=== PATIENT | male | born 1985 | race Caucasian/White ===

== ENCOUNTER 2017-01-05 19:04 | Emergency (ER) | payer OTHER ==
[~2017-01-05] VITALS: Ht 172.7 cm; Wt 144.1 kg
[~2017-01-05 19:04] MED LIST: DRV100 PO
[2017-01-05 19:07] VITALS: TEMP 36.4; Ht 172.7 cm; Wt 144.1 kg
[2017-01-05 19:16] VITALS: O2SAT 96
--- NOTE | 2017-01-05 19:30 | EMERGENCY ROOM VISIT NOTE ---
History Report prepared by Scribjoe: Steffany Castellanos Under the Supervision of: Dr. Nuria Hernandez D.O. First contact with patient: 19:11 Chief Complaint: CHEST PAIN Stated Complaint: CHEST PAIN, LEFT ARM WEIRD FEELING History of Present Illness The patient is a 31 year old male who presents to the Emergency Room with complaints of persistent chest pain that started at 1000 this morning. He rates his discomfort as a 3/10 in severity and describes it as feeling like "pressure ". 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 Movement actually eases his pain. He also complains of numbness in his left arm and some intermittent abdominal pain. He told his Mother, who is a nurse, about his symptoms and states she checked his blood pressure and found it to be elevated, so she advised he come to the ED. The patient notes his brother had open heart surgery at age 32 for mitral valve replacement. He also admits to a constant cough "for the past few years", stating he feels like something is stuck in his throat. He denies any recent fevers, cold symptoms, shortness of breath, diarrhea, constipation, urinary symptoms or swelling in his legs. The patient is a non-smoker. He has been eating and drinking normally in the past few days. He denies any recent changes in stress levels or activity. Source of History: patient Onset: 1000 today Position: chest Symptom Intensity: 3/10 Quality: pressure Timing: other (persistent) Associated Symptoms: + cough, + abdominal pain, + numbness (left arm), No SOB, No diarrhea, No urinary symptoms Review of Systems See HPI for pertinent positives & negatives. A total of 10 systems reviewed and were otherwise negative. Family History Heart disease Mitral valve repair Social History Smoking Status: Never Smoker Smokeless Tobacco Use: No Alcohol Use: occasionally Drug Use: none Marital Status: Housing Status: lives with family Occupation Status: employed Current/Historical Medications Scheduled Bupropion (Wellbutrin), Unknown Dose PO DAILY Allergies Coded Allergies: Amoxicillin (Unverified Allergy, Severe, ., 01/05/17) Erythromycin (Unverified Allergy, Severe, ., 01/05/17) Penicillins (Unverified Allergy, Severe, ., 01/05/17) Physical Exam Vital Signs Date Time Temp Pulse Resp B/P (MAP) Pulse Ox O2 Delivery O2 Flow Rate FiO2 01/05/17 21:14 105 16 151/101 96 01/05/17 20:23 107 16 153/108 96 Room Air 01/05/17 19:19 112 01/05/17 19:16 96 Room Air 01/05/17 19:14 96 Room Air 01/05/17 19:07 36.4 112 16 162/110 100 Room Air Physical Exam GENERAL: Patient is alert, well appearing, well nourished, no distress, non- toxic EYE EXAM: normal conjunctiva, PERRL and EOM's grossly intact OROPHARYNX: no exudate, no erythema, lips, buccal mucosa, and tongue normal and mucous membranes are moist NECK: supple, no nuchal rigidity, no adenopathy, non-tender LUNGS: Clear to auscultation. Normal chest wall mechanics HEART: no murmurs, S1 normal and S2 normal ABDOMEN: abdomen soft, non-tender, normo-active bowel sounds, no masses, no rebound or guarding. BACK: Back is symmetrical on inspection and there is no deformity, no midline tenderness, no CVA tenderness. SKIN: no rashes and no bruising UPPER EXTREMITIES: upper extremities are grossly normal. LOWER EXTREMITIES: No pitting edema. NEURO EXAM: Normal sensorium, cranial nerves II-XII [grossly] intact, normal speech, no [gross] weakness of arms, no [gross] weakness of legs. [No drift. Finger to nose intact. Gross sensation intact.] Medical Decision & Procedures ER Provider Diagnostic Interpretation: Radiology results have been interpreted by the radiologist and reviewed by me. CHEST ONE VIEW PORTABLE CLINICAL HISTORY: chest pain dyspnea COMPARISON STUDY: No previous studies for comparison. FINDINGS: The bones soft tissues and hemidiaphragms are normal. The cardiomediastinal silhouette is normal. The lungs are clear. The pulmonary vasculature is normal. IMPRESSION: Negative chest. The above report was generated using voice recognition software. It may contain grammatical, syntax or spelling errors. Electronically signed by: Leandro Ovalle M.D. 01/05/2017 8:04 PM Laboratory Results 01/05/17 19:39 Red Blood Count 5.37, Mean Corpuscular Volume 84.5, Mean Corpuscular Hemoglobin 28.3, Mean Corpuscular Hemoglobin Concent 33.5, Mean Platelet Volume 9.4, Neutrophils (%) (Auto) 68.2, Lymphocytes (%) (Auto) 21.3, Monocytes (%) (Auto) 7.8, Eosinophils (%) (Auto) 1.9, Basophils (%) (Auto) 0.6, Neutrophils # (Auto) 7.36, Lymphocytes # (Auto) 2.29, Monocytes # (Auto) 0.84, Eosinophils # (Auto) 0.20, Basophils # (Auto) 0.06 01/05/17 19:39 Test 01/05/17 19:39 White Blood Count 10.77 K/uL (4.8-10.8) Red Blood Count 5.37 M/uL (4.7-6.1) Hemoglobin 15.2 g/dL (14.0-18.0) Hematocrit 45.4 % (42-52) Mean Corpuscular Volume 84.5 fL (80-100) Mean Corpuscular Hemoglobin 28.3 pg (25-34) Mean Corpuscular Hemoglobin Concent 33.5 g/dl (32-36) Platelet Count 279 K/uL (130-400) Mean Platelet Volume 9.4 fL (7.4-10.4) Neutrophils (%) (Auto) 68.2 % Lymphocytes (%) (Auto) 21.3 % Monocytes (%) (Auto) 7.8 % Eosinophils (%) (Auto) 1.9 % Basophils (%) (Auto) 0.6 % Neutrophils # (Auto) 7.36 K/uL (1.4-6.5) Lymphocytes # (Auto) 2.29 K/uL (1.2-3.4) Monocytes # (Auto) 0.84 K/uL (0.11-0.59) Eosinophils # (Auto) 0.20 K/uL (0-0.5) Basophils # (Auto) 0.06 K/uL (0-0.2) RDW Standard Deviation 38.7 fL (36.4-46.3) RDW Coefficient of Variation 12.6 % (11.5-14.5) Immature Granulocyte % (Auto) 0.2 % Immature Granulocyte # (Auto) 0.02 K/uL (0.00-0.02) Prothrombin Time 11.3 SECONDS (9.0-12.0) Prothromb Time International Ratio 1.1 (0.9-1.1) D-Dimer 380 ug/L FEU (0-500) Anion Gap 7.0 mmol/L (3-11) Est Creatinine Clear Calc Drug Dose 134.5 ml/min Estimated GFR () 102.4 Estimated GFR (Non- 88.4 BUN/Creatinine Ratio 10.8 (10-20) Calcium Level 9.1 mg/dl (8.5-10.1) Total Bilirubin 0.6 mg/dl (0.2-1) Aspartate Amino Transf (AST/SGOT) 48 U/L (15-37) Alanine Aminotransferase (ALT/SGPT) 85 U/L (12-78) Alkaline Phosphatase 65 U/L (45-117) Troponin I < 0.015 ng/ml (0-0.045) Pro-B-Type Natriuretic Peptide 10 pg/ml (0-450) Total Protein 7.4 gm/dl (6.4-8.2) Albumin 3.6 gm/dl (3.4-5.0) Globulin 3.8 gm/dl (2.5-4.0) Albumin/Globulin Ratio 0.9 (0.9-2) Laboratory results per my review. Medications Administered Medications (Trade) Dose Ordered Sig/Mary Route Start Time Stop Time Status Last Admin Dose Admin Al Hydroxide/Mg Hydroxide (Maalox Susp) 30 ml NOW STAT PO 01/05/17 20:17 01/05/17 20:18 DC 01/05/17 20:21 30 ML Ketorolac Tromethamine (Toradol Inj) 30 mg NOW STAT IV 01/05/17 20:40 01/05/17 20:42 DC 01/05/17 20:46 30 MG ECG Indication: chest pain Rate (beats per minute): 102 Rhythm: sinus tachycardia Findings: no acute ischemic change, no ectopy, other (normal axis, normal intervals) ED Course 1915: The patient was evaluated in room C9. A complete history and physical exam was performed. 2017: Maalox Susp 30 ml PO. 2034: I reevaluated the patient. He states his pain is now a 2/10 in severity and he is feeling better. I discussed his results and discharge instructions and he verbalized complete understanding and agreement. 2039: Toradol 30 mg IV. Medical Decision Prior records/ancillary studies reviewed. Triage Nursing notes reviewed. The patient's history was concerning for chest pain. Differential diagnosis: Etiologies such as cardiac ischemia, aortic dissection, pulmonary embolism, pneumonia, pneumothorax, musculoskeletal, infections, pericarditis, myocarditis , esophageal rupture, gastrointestinal, as well as others were entertained. Pt well appearing here despite complaints. Pain improved with maalox and then resolved with toradol. Discussed ddx with pt, all labs/imaging. Doubt cardiac or vascular etiology, doubt tamponade, effusion, pneumothorax, pneumonia, dysrhythmia, aaa, dissection. Pt with hypertension noted here, as well as tachycardia initially which improved. Likely from pain, anxiety regarding situation. Doubt pe, no evidence for anemia, dimer negative. HR improved with hydration and pain control. Discussed close f/u with PCP, recheck of BP, and if sx recur or persist, possible cardiology evaluation. Discussed sx to watch/ return for, he verbalized understanding and was agreeable with plan. Medication Reconcilliation Current Medication List: was personally reviewed by me Blood Pressure Screening Patient's blood pressure: Elevated blood pressure Blood pressure disposition: Referred to PCP Impression Primary Impression: Chest pain Additional Impressions: Hypertension Obesity Scribe Attestation The scribe's documentation has been prepared under my direction and personally reviewed by me in its entirety. I confirm that the note above accurately reflects all work, treatment, procedures, and medical decision making performed by me. Departure Information Dispostion Home / Self-Care Referrals Dmitry Chery M.D. (PCP) Patient Instructions My [facility] Additional Instructions Please call and follow up with your family doctor. Please avoid any strenuous activity or heavy lifting until you're seen by your doctor. If you have any recurrent episodes of pain, develop trouble breathing, fevers, cough, dizziness , vomiting, back pain, or you have any other new concerns, please return to the emergency room. Problem Qualifiers Primary Impression: Chest pain Chest pain type: unspecified Qualified Codes: R07.9 - Chest pain, unspecified Additional Impressions: Hypertension Hypertension type: essential hypertension Qualified Codes: I10 - Essential ( primary) hypertension Obesity Obesity type: due to excess calories Obesity classification: unspecified obesity classification Serious obesity comorbidity presence: without serious comorbidity Qualified Codes: E66.09 - Other obesity due to excess calories
[2017-01-05 19:50] LABS: BASO % 0.6 %; BASO ABS # 0.06 K/uL (0-0.2); COMPLETE YES; EOS % 1.9 %; HEMATOCRIT 45.4 % (42-52); IG% 0.2 %; LYMPH % 21.3 %; LYMPH ABS # 2.29 K/uL (1.2-3.4); MEAN CELL VOLUME 84.5 fL (80-100); MEAN CORPUSCULAR HEMOGLOBIN 28.3 pg (25-34); MEAN CORPUSCULAR HGB CONC 33.5 g/dl (32-36); MEAN PLATELET VOLUME 9.4 fL (7.4-10.4); MONO % 7.8 %; NEUT % 68.2 %; PLATELET COUNT 279 K/uL (130-400); RED BLOOD COUNT 5.37 M/uL (4.7-6.1); WHITE BLOOD COUNT 10.77 K/uL (4.8-10.8)
[2017-01-05 20:03] LABS: INR 1.1 (0.9-1.1); PROTHROMBIN TIME (PATIENT) 11.3 SECONDS (9.0-12.0)
[2017-01-05 20:06] LABS: ALT/SGPT 85 U/L (12-78); AST/SGOT 48 U/L (15-37); BLOOD UREA NITROGEN 12 mg/dl (7-18); BUN/CREATININE RATIO 10.8 (10-20); CALCIUM 9.1 mg/dl (8.5-10.1); CARBON DIOXIDE 27 mmol/L (21-32); CHLORIDE 104 mmol/L (98-107); GLUCOSE 84 mg/dl (70-99); POTASSIUM 3.7 mmol/L (3.5-5.1); SODIUM 138 mmol/L (136-145)
[2017-01-05] MEDS ORDERED: BUPR75TA20 PO (20:06)
--- NOTE | 2017-01-05 20:06 | DIAGNOSTIC IMAGING REPORT ---
CHEST ONE VIEW PORTABLE CLINICAL HISTORY: chest pain dyspnea COMPARISON STUDY: No previous studies for comparison. FINDINGS: The bones soft tissues and hemidiaphragms are normal. The cardiomediastinal silhouette is normal. The lungs are clear. The pulmonary vasculature is normal. IMPRESSION: Negative chest. The above report was generated using voice recognition software. It may contain grammatical, syntax or spelling errors. Electronically signed by: Leandro Ovalle M.D. 01/05/2017 8:04 PM Dictated Date/Time: 01/05/2017 8:03 PM
[2017-01-05 20:11] LABS: ALB/GLOB RATIO 0.9 (0.9-2); ALKALINE PHOSPHATASE 65 U/L (45-117)
[2017-01-05] MEDS ORDERED: ALUMINUM/MAGNESIUM SUSP 30 ML UDC PO STA (20:17)
[2017-01-05] MEDS ORDERED: KETOROLAC TROMETHAMINE 30 MG/ML VIAL IV STA (20:40)
[2017-01-05 21:14] VITALS: BP 151/101; PULSE 105; O2SAT 96
== END 2017-01-05 21:15 | disposition home or self-care (01) ==
LOC: C.EDB 19:06 → C.EDC 21:15
DX: R07.9 Chest pain, unspecified (principal); M79.602 Pain in left arm; I10 Essential (primary) hypertension; E66.09 Other obesity due to excess calories; Z82.49 Family history of ischemic heart disease and other diseases of the circulatory system